=== PATIENT | female | born 1940 | race Caucasian/White ===

== ENCOUNTER 2016-12-15 09:18 | Emergency (ER) | payer OTHER ==
[2016-12-15 09:40] VITALS: RESP 16; TEMP 97.9
--- NOTE | 2016-12-15 09:45 | EDPHY ---
H & P Stated Complaint: "mass in stomach" Time Seen by Provider: 12/15/16 09:37 HPI/ROS: CHIEF COMPLAINT: "I've got a mass in my abdomen" HISTORY OF PRESENT ILLNESS: The patient is a 76 y/o female arriving with her complaining of a right-sided abdominal mass. She began feeling like she was "stuffed in her abdomen" around June, 5 months ago. She attributed this to weight gain and initially had no pain or mass. She has noticed a mass in her RLQ on palpation that does not change with bowel movements or other daily activities. She has associated "low-grade gnawing pain I feel most of the time" in the same area. She denies diarrhea, constipation, change in BM's, vomiting, dysuria, fever. She has not seen a PCP recently since hers retired. REVIEW OF SYSTEMS: Constitutional: No fever, no chills Eyes: No visual changes ENT: No sore throat Respiratory: No cough, no shortness of breath Cardiac: No chest pain Gastrointestinal: see HPI Genitourinary: No hematuria, no dysuria Musculoskeletal: No leg pain or swelling Skin: No rash Neurological: No headache, no numbness, no weakness Psychiatric: No depression - Personal History Current Tetanus Diphtheria and Acellular Pertussis (TDAP): Unsure - Medical/Surgical History PMH: Denies Hx Asthma: No Hx Chronic Respiratory Disease: No Hx Diabetes: No Hx Cardiac Disease: No Hx Renal Disease: No Hx Cirrhosis: No Hx Alcoholism: No Hx HIV/AIDS: No Hx Splenectomy or Spleen Trauma: No - Social History Smoking Status: Unknown if ever smoked Additional Social History: at bedside. PCP: [facility] - Physical Exam Exam: General Appearance: Alert, no distress, hypertensive at 194/93 Eyes: Pupils equal and round, no conjunctival pallor or injection ENT, Mouth: Mucous membranes moist Neck: Normal inspection Respiratory: Lungs are clear to auscultation Cardiovascular: Regular rate and rhythm Gastrointestinal: Abdomen is soft and non- tender, no palpable mass Neurological: A&O, nonfocal, normal gait Skin: Warm and dry, no rash Extremities: Nontender, no pedal edema Psychiatric: Mood and affect normal Constitutional: Initial Vital Signs Temperature (C) 36.6 C 12/15/16 09:34 Heart Rate 76 12/15/16 09:34 Respiratory Rate 16 12/15/16 09:34 Blood Pressure 194/93 H 12/15/16 09:34 O2 Sat (%) 96 12/15/16 09:34 O2 Delivery Mode Room Air Medical Decision Making - Diagnostics Imaging Results: CT abd/pelvis: NAD Imaging: Discussed imaging studies w/ dress draper Radiologist, I viewed and interpreted images myself ED Course/Re-evaluation: This is a 76 y/o female with no reported medical history who presents for evaluation of a reported mass in her RLQ with associated pain for the last few months. No changes in bowel habits. I find no evidence of a mass on exam. Plan for UA, IV, labs including CBC, CHEM, lipase, LFTs, and abdominal CT. Reassessed patient. Her labs and abdominal CT are unremarkable. Her abdomen remains benign. I recommended outpatient follow up with her PCP in the next week for ongoing symptoms. Return precautions given. She is comfortable with this plan. Differential Diagnosis: includes though not limited to tumor, cholecystitis, colitis, appy, PUD, SBO - Data Points Laboratory Results: Laboratory Results 12/15/16 09:35 12/15/16 09:35 Departure - Departure Disposition: Home, Routine, Self-Care Clinical Impression: Abdominal pain Qualifiers: Abdominal location: right upper quadrant Qualified Code(s): R10.11 - Right upper quadrant pain Condition: Good Instructions: Abdominal Pain (ED) Additional Instructions: 1. Your abdominal CT shows no evidence of a mass. 2. Follow up with a primary care provider for unimproved symptoms over the next few days. You've been referred to Dr. Noguera. 3. Return to the ED for worsening of condition. 4. Have your blood pressure rechecked. It is elevated today. Referrals: NONE *PRIMARY CARE P,. [Primary Care Provider] - As per Instructions Liliya Noguera MD [Medical Doctor] - As per Instructions Report Scribed for: Kaya Cisneros Report Scribed by: Naomi Mccrary Date of Report: 12/15/16 Time of Report: 09:46 Physician Review and Approval Statement: 12/15/16 09:46 Portions of this note were transcribed by a associate medical director. I personally performed a history, physical exam, medical decision making, and confirmed accuracy of information the transcribed note.
[2016-12-15 09:53] LABS: % IMMATURE GRANULYOCYTES 0.4 % (0.0-1.1); ABSOLUTE IMMATURE GRANULOCYTES 0.03 10^3/uL (0.00-0.10); ADD DIFF? NO; ADD MORPH? NO; ADD SCAN? NO; ATYPICAL LYMPHOCYTE FLAG 20 (0-99); FRAGMENT RBC FLAG 0 (0-99); HEMOGLOBIN 15.5 g/dL (12.6-16.3); LEFT SHIFT FLG 0 (0-99); LIPEMIA HEMOLYSIS FLAG 90 (0-99); MEAN CELL HEMOGLOBIN 32.4 pg (27.9-34.1); MEAN CELL HEMOGLOBIN CONCENTR. 34.4 g/dL (32.4-36.7); MEAN CELL VOLUME 93.9 fL (81.5-99.8); MEAN PLATELET VOLUME 10.9 fL (8.7-11.7); PLATELET CLUMPS FLAG 0 (0-99); PLATELET COUNT 272 10^3/uL (150-400); RED BLOOD CELL COUNT 4.79 10^6/uL (4.18-5.33); RED CELL DISTRIBUTION WIDTH 12.8 % (11.5-15.2)
[2016-12-15 10:15] LABS: ALANINE AMINOTRANSFERASE 34 IU/L (9-52); ALBUMIN 4.2 g/dL (3.5-5.0); ALKALINE PHOSPHATASE 71 IU/L (38-126); ANION GAP 12 mEq/L (8-16); ASPARTATE AMINOTRANSFERASE 28 IU/L (14-46); BILIRUBIN-CONJUGATED 0.1 mg/dL (0.0-0.5); BILIRUBIN-UNCONJUGATED 0.9 mg/dL (0.0-1.1); CALCIUM 9.8 mg/dL (8.5-10.4); CARBON DIOXIDE 22 mEq/l (22-31); CHLORIDE 109 mEq/L (97-110); GLOMERULAR FILTRATION RATE 54; GLUCOSE 93 mg/dL (70-100); POTASSIUM 4.3 mEq/L (3.5-5.2); SODIUM 143 mEq/L (134-144); TOTAL PROTEIN 7.5 g/dL (6.3-8.2)
[2016-12-15] MEDS ORDERED: IOPAMIDOL (ISOVUE-300) 100 ML BTL ONE (10:36)
[2016-12-15 12:02] VITALS: BP 153/83; PULSE 56; O2SAT 92
== END 2016-12-15 12:00 | disposition home or self-care (01) ==
DX: R10.11 Right upper quadrant pain (principal)
CPT/HCPCS: 74177; 99285; Q9967

== ENCOUNTER → 2017-08-20 | Outpatient (CLI) | payer OTHER | LOC: FIMAGING 09:20 | PROVIDERS: ATTEND Family Medicine | DX: R00.2 Palpitations (principal); R06.02 Shortness of breath ==

== ENCOUNTER → 2017-09-14 | Outpatient (CLI) | payer OTHER | LOC: BHFA 10:00 | PROVIDERS: ATTEND Internal Medicine Interventional Cardiology | DX: R00.2 Palpitations (principal) ==

== ENCOUNTER → 2017-09-17 | Outpatient (CLI) | payer OTHER | LOC: BHFA 08:30 | PROVIDERS: ATTEND Internal Medicine Cardiovascular Disease | DX: R07.9 Chest pain, unspecified (principal); R06.09 Other forms of dyspnea | CPT/HCPCS: 78452; 93017; A9500 ==

== ENCOUNTER 2018-04-03 09:20 | Emergency (ER) | payer OTHER ==
--- NOTE | 2018-04-03 09:36 | CPEKG ---
Test Reason : OPEN Blood Pressure : / mmHG Vent. Rate : 142 BPM Atrial Rate : 138 BPM P-R Int : 082 ms QRS Dur : 082 ms QT Int : 307 ms P-R-T Axes : 000 056 106 degrees QTc Int : 472 ms Atrial fibrillation Probable LVH with secondary repol abnrm ST depression, probably rate related Confirmed by Duke Garcia ([id number]) on 04/03/2018 9:35:52 AM Referred By: Confirmed By:Duke Garcia
[2018-04-03] MEDS ORDERED: DILTIAZEM 25 MG/5 ML VIAL IVP ONE (09:38)
[2018-04-03] MEDS ORDERED: NS 1,000 ML IV ONE (09:40)
--- NOTE | 2018-04-03 09:41 | EDPHY ---
General Time Seen by Provider: 04/03/18 09:40 Narrative: CHIEF COMPLAINT: Irregular heart rate HISTORY OF PRESENT ILLNESS: Patient presents by private vehicle with her spouse with complaints of irregular heart rate. She states that she was getting up onto a ladder as they are planning to paint, when she felt an irregular heart rate. She says that " it feels might my heart is just flopping around." Some pressure with but no actual pain. No exertional pain. The symptoms are constant over the past 2 hr. No exacerbating or alleviating factors. She does feel somewhat lightheaded. She has no loss of consciousness. No trauma. She has had similar symptoms over the past few months to a year without a formal diagnosis. She has seen shot polisher Dr. To, and she reports at Holter monitor and echocardiogram earlier this year with no definite diagnosis. No previous diagnosis of coronary artery disease, atrial fibrillation, PE, DVT or atrial flutter. No anticoagulation use. No other associated complaints or modifying factors. REVIEW OF SYSTEMS: 10 systems were reviewed and negative with the exception of the elements mentioned in the history of present illness. PCP: Dr. Junito Lawson SPECIALISTS: Cardiology, Dr. Sushant To PAST MEDICAL HISTORY: Cataracts PAST SURGICAL HISTORY: Cataract surgery SOCIAL HISTORY: Never smoker. Lives independently with her spouse in [place]. 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 FAMILY HISTORY: Noncontributory EXAMINATION: Vitals: Triage VS reviewed. Tachycardic rate. Afebrile. No SIRS General Appearance: Alert, no distress. Well appearing. Conversing in full sentences. Head: normocephalic, atraumatic Eyes: Pupils equal and round, no conjunctival pallor or injection ENT, Mouth: Mucous membranes moist Neck: Normal inspection, supple, non-tender Respiratory: Lungs are clear to auscultation Cardiovascular: Tachycardic rate. Irregular irregular rhythm. No murmur. Gastrointestinal: Abdomen is soft and nontender Back: non-tender, no bony abnormalities Neurological: A&O, nonfocal, normal gait. No altered mentation. Skin: Warm and dry, no rash Extremities: Nontender, no pedal edema Psychiatric: Mood and affect normal DIFFERENTIAL DIAGNOSES: Including but not limited to atrial fibrillation with RVR, atrial flutter, SVT, sinus tachycardia MDM: 9:35 a.m. Irregular rhythm with 1st time documentation of atrial fibrillation on her EKG. She is AFib RVR. She is awake and alert. Her pressure is 136/100. No altered mentation. No hypotension. No active chest pain. IV has been established. I have discussed with Dr. Garcia and he has ordered diltiazem IV 10 mg. We will also resuscitated with IV fluid and check her laboratory studies. Chest x-ray ordered. We will consult Cardiology. 10:20 a.m. Laboratory studies thus far are negative, including negative troponin. She does have some hemoconcentration and is receiving IV fluid. She has received 10 mg of Cardizem and her rate is now controlled. Proceed with cardiology consultation. 10:40 a.m. Case discussed with Cardiology, Fabricio GAS TRANSFER OPERATOR, and he will evaluate the patient in the emergency department shortly. He agrees with echocardiogram stat. No further recommendations at this time. 11:30 a.m. Echocardiogram complete but not yet interpreted. Cardiology at bedside. 12:30 p.m. Genetic Engineer has evaluated the patient. They have ordered p.o. Diltiazem. They would like her to take this and then ambulate approximately 30 min later. If tolerated, she may go home and follow up with them tomorrow morning for repeat EKG. They will start her on Eliquis twice daily here. If she is in AFib tomorrow morning, they will proceed with JUNIE and cardioversion. If not, the continue medications as discussed. The patient is comfortable this plan. 1:15 p.m. Patient has taking her medication and ambulated with minimal symptoms and no difficulty. She is comfortable with how she feels like to go home. Prescriptions for diltiazem and Eliquis were written by Fabricio with Cardiology. She has strict NPO after midnight instructions. She has an appointment tomorrow morning in their office for repeat EKG and plan as above. The patient is comfortable this plan. She is awake alert. She is conversing appropriately discharged home stable condition. SUPERVISION: Patient was independently examined, but I discussed the case with my secondary supervising physician Dr. Garcia CONSULTATION: Cardiology consultation in the emergency department - Diagnostics Imaging Results: Imaging Impressions Chest X-Ray 04/03/18 09:39 Impression: 1. No edema or acute process. 2. Chronic airways disease and minimal bibasilar atelectasis. - History Smoking Status: Never smoked - Objective Vital Signs: Initial Vital Signs Temperature (C) 97.5 F 04/03/18 09:22 Heart Rate 136 H 04/03/18 09:22 Respiratory Rate 18 04/03/18 09:22 Blood Pressure 159/117 H 04/03/18 09:22 O2 Sat (%) 98 04/03/18 09:22 O2 Delivery Mode Room Air Allergies/Adverse Reactions: No Known Allergies Allergy (Unverified 04/03/18 09:22) Home Medications: Medication Instructions Recorded Apixaban [Eliquis] 5 mg PO BID #60 tab 04/03/18 Diltiazem Cd [Cardizem ER Q24hr] 180 mg PO DAILY #30 cap 04/03/18 Ketorolac 0.5% 04/03/18 Pred-G 1% Eye Drops 04/03/18 Laboratory Results: Laboratory Results 04/03/18 09:35 04/03/18 09:35 04/03/18 04/03/18 04/03/18 09:39 09:35 09:35 WBC RBC Hgb Hct MCV MCH MCHC RDW Plt Count MPV Neut % (Auto) Lymph % (Auto) [place] % (Auto) Eos % (Auto) Baso % (Auto) Nucleat RBC Rel Count Absolute Neuts (auto) Absolute Lymphs (auto) Absolute Monos (auto) Absolute Eos (auto) Absolute Basos (auto) Absolute Nucleated RBC Immature Gran % Immature Gran # PT INR APTT Sodium 142 mEq/L mEq/L (135-145) Potassium 4.4 mEq/L mEq/L (3.3-5.0) Chloride 107 mEq/L mEq/L (97-110) Carbon Dioxide 23 mEq/l mEq/l (22-31) Anion Gap 12 mEq/L mEq/L (6-14) BUN 24 mg/dL H mg/dL (7-23) Creatinine 1.0 mg/dL mg/dL (0.6-1.0) Estimated GFR 54 Glucose 94 mg/dL mg/dL (70-100) Calcium 10.2 mg/dL mg/dL (8.5-10.4) POC Troponin I 0.00 ng/mL ng/mL (0.00-0.08) TSH 4.570 uIU/mL uIU/mL (0.465-4.680) 04/03/18 04/03/18 09:35 09:35 WBC 8.43 10^3/uL 10^3/uL (3.80-9.50) RBC 5.50 10^6/uL H 10^6/uL (4.18-5.33) Hgb 17.6 g/dL H g/dL (12.6-16.3) Hct 51.1 % H % (38.0-47.0) MCV 92.9 fL fL (81.5-99.8) MCH 32.0 pg pg (27.9-34.1) MCHC 34.4 g/dL g/dL (32.4-36.7) RDW 12.7 % % (11.5-15.2) Plt Count 279 10^3/uL 10^3/uL (150-400) MPV 10.8 fL fL (8.7-11.7) Neut % (Auto) 52.8 % % (39.3-74.2) Lymph % (Auto) 30.8 % % (15.0-45.0) Costilla % (Auto) 11.5 % % (4.5-13.0) Eos % (Auto) 3.8 % % (0.6-7.6) Baso % (Auto) 0.9 % % (0.3-1.7) Nucleat RBC Rel Count 0.0 % % (0.0-0.2) Absolute Neuts (auto) 4.44 10^3/uL 10^3/uL (1.70-6.50) Absolute Lymphs (auto) 2.60 10^3/uL 10^3/uL (1.00-3.00) Absolute Monos (auto) 0.97 10^3/uL H 10^3/uL (0.30-0.80) Absolute Eos (auto) 0.32 10^3/uL 10^3/uL (0.03-0.40) Absolute Basos (auto) 0.08 10^3/uL 10^3/uL (0.02-0.10) Absolute Nucleated RBC 0.00 10^3/uL 10^3/uL (0-0.01) Immature Gran % 0.2 % % (0.0-1.1) Immature Gran # 0.02 10^3/uL 10^3/uL (0.00-0.10) PT 12.3 SEC SEC (12.0-15.0) INR 0.89 (0.83-1.16) APTT 25.2 SEC SEC (23.0-38.0) Sodium Potassium Chloride Carbon Dioxide Anion Gap BUN Creatinine Estimated GFR Glucose Calcium POC Troponin I TSH Medications Given: Apixaban (Eliquis) 5 mg PO BID RAFAEL Stop: 09/30/18 12:14 Last Admin: 04/03/18 12:30 Dose: 5 mg Diltiazem HCl (Cardizem Er Q24hr) 180 mg PO DAILY RAFAEL Stop: 09/30/18 12:14 Last Admin: 04/03/18 12:30 Dose: 180 mg Discontinued Medications Diltiazem HCl (Cardizem 25 Mg/5 Ml Vial) 10 mg IVP EDNOW ONE Stop: 04/03/18 09:39 Last Admin: 04/03/18 09:48 Dose: 10 mg Sodium Chloride (Ns) 1,000 mls @ 0 mls/hr IV EDNOW ONE; Wide Open PRN Reason: Protocol Stop: 04/03/18 09:41 Last Admin: 04/03/18 09:47 Dose: 1,000 mls Point of Care Test Results: Chemistry 04/03/18 09:39 POC Troponin I 0.00 ng/mL ng/mL (0.00-0.08) Departure - Departure Disposition: Home, Routine, Self-Care Clinical Impression: Atrial fibrillation Qualifiers: Atrial fibrillation type: paroxysmal Qualified Code(s): I48.0 - Paroxysmal atrial fibrillation Condition: Good Instructions: A-fib (Atrial Fibrillation) (ED) Additional Instructions: Do not eating any solid food after midnight tonight. April 04 at 9:00 a.m., electrocardiogram to be done at [facility] If you remain in atrial fibrillation, then will go JUNIE/cardioversion tomorrow afternoon. Referrals: Sushant To MD [Primary Care Provider] - As per Instructions (April 04 at 9:00 a.m., electrocardiogram to be done at [facility]) Prescriptions: Apixaban [Eliquis] 5 mg PO BID #60 tab Diltiazem Cd [Cardizem ER Q24hr] 180 mg PO DAILY #30 cap
[2018-04-03 09:46] LABS: PLATELET COUNT 279 10^3/uL (150-400)
[2018-04-03 09:54] LABS: INR 0.89 (0.83-1.16); PROTIME(PATIENT) 12.3 SEC (12.0-15.0)
--- NOTE | 2018-04-03 12:08 | ECHO ---
[email or web address] [address] Main: [phone] Fax: Transthoracic Echocardiogram Name: VIDA PINEDA MR#: [id number] Study Date: 04/03/2018 Study Time: 10:56 AM Date of : 1940 Age: 78 year(s) Height: 162.6 cm (64 in.) Weight: 58.51 kg (129 lb.) BSA: 1.62 m2 Gender: Female Examination: Echo Indication: new onset a fib with rvr Image Quality: Contrast: Requested by: Cliff Baker BP: 160 mmHg/95 mmHg Heart Rate: Rhythm: Indication: new onset a fib with rvr Procedure Staff Grade Recorder: Monique Shoemaker [facility] Reading Physician: Roberto Hand MD Requesting Provider: Conclusions: Normal size left ventricle. Asymmetrical septal LV hypertrophy. Normal global systolic LV function. The ejection fraction is estimated to be 60-65 %. Normal size right ventricle. Normal RV function. The left atrium is normal in size. The right atrium is normal in size. Right ventricular systolic pressure measures 27mmHg. Normal size ascending aorta measuring 3.1 cm. No pericardial effusion. Measurements: Chambers Valvular Assessment AV/MV Valvular Assessment TV/PV Normal Normal Normal Name Value Range Name Value Range Name Value Range Ao Tana (2D): 2.6 cm (1.4 cm-2.6 AV Vmax: 1.20 m/s (1 m/s-1.7 TR Vmax: 2.32 mm/s ( - ) cm) m/s) TR PGmax: 22 mmHg ( - ) IVSd (2D): 1.9 cm (0.6 cm-1.1 AV maxP mmHg ( - ) syst. PAP: 27 mmHg ( - ) cm) AV meanP mmHg ( - ) PV Vmax: 0.94 m/s (0.6 m/s-0.9 LVDd (2D): 2.8 cm (3.9 cm-5.3 LVOT Vmax: 0.93 m/s (0.7 m/s-1.1 m/s) cm) m/s) PV PGmax: 4 mmHg ( - ) LVDs (2D): 2.0 cm (2.1 cm-4 ECHO (Vmax): 1.6 cm2 ( - ) cm) ECHO (VTI): 1.7 cm ( - ) LVPWd (2D): 1.3 cm ( - ) MV E Vmax: 0.64 m/s ( - ) LVOTd 1.6 cm 1.6 cm mm MV PHT: 0.026 s ( - ) LVEF (BP): 69 % (>=55 %) MVA (PHT): 8.5 s ( - ) EF Range: 60-65 % RVDd(2D): 2.4 cm (1.9 cm-3.8 cmmm) Patient: VIDA PINEDA Study Date: 04/03/2018 Page 1 of 2 10:56 AM Continued Measurements: Chambers Valvular Assessment AV/MV Valvular Assessment TV/PV Name Value Name Value Name Value LADs: 2.3 cm MV DecTime: 113 m/s CVP (est.): 5 mmHg LADs Lon.2 cm LA Area: 12.2 cm2 LA Volume: 25 ml LA Volume Index: 15.4 ml/m2 RA Area: 11.5 cm2 Additional Vessels Name Value Ao Ascendin.1 cm Inferior Vena Cava: 1.3 cm Findings: Left Ventricle: Normal size left ventricle. Asymmetrical septal LV hypertrophy. Normal global systolic LV function. The ejection fraction is estimated to be 60-65 %. No regional wall motion abnormality. Unable to assess diastolic function due to atrial fibrillation. Right Ventricle: Normal size right ventricle. Normal RV function. Left Atrium: The left atrium is normal in size. Right Atrium: The right atrium is normal in size. Mitral Valve: The mitral valve is normal in appearance and function. No mitral stenosis is present. Trivial mitral valve regurgitation. Aortic Valve: The aortic valve is tri-leaflet. There is no significant aortic valve regurgitation. No aortic valve stenosis is present. Tricuspid Valve: The tricuspid valve is normal in appearance and function. Mild tricuspid regurgitation is present. The pulmonary artery pressure is normal. Right ventricular systolic pressure measures 27mmHg. Pulmonic Valve: The pulmonic valve is normal in appearance and function. Trivial pulmonic valve regurgitation. Aorta: The aorta is normal. Normal size aortic root measuring 2.6 cm. Normal size ascending aorta measuring 3.1 cm. IVC: The IVC is normal sized. Pericardium: No pericardial effusion. No pleural effusion. (No Signature Object) Patient: VIDA PINEDA Study Date: 04/03/2018 Page 2 of 2 10:56 AM [id number]
[2018-04-03] MEDS ORDERED: APIXABAN 5 MG TAB PO SCH (12:15)
[2018-04-03] MEDS ORDERED: DILTIAZEM CD 180 MG CAP PO SCH (12:15)
[2018-04-03 13:30] VITALS: BP 115/84
--- NOTE | 2018-04-03 14:18 | GCON ---
CARDIOLOGY CONSULTATION REFERRING PHYSICIAN: Cliff Baker PA-C INDICATION FOR CARDIOLOGY CONSULTATION: Atrial fibrillation with rapid ventricular response. HISTORY OF PRESENT ILLNESS: The patient is a 78-year-old female. She has been seen in our practice by Dr. To as her primary automatic buffer. Last seen in September of this year. Patient reporting long hi story of palpitations, reporting happening sporadically during the year, but feels like in the last y ear she has had more significant episodes. She describes them as a racing heart rate, they usually c ome on spontaneously, they cause associated symptoms of lightheadedness, shortness of breath, and in the past occasional mild midsternal chest pressure. Earlier this year, when seen by Dr. To, she did undergo significant cardiac testing, including an echocardiogram which noted normal LV size with normal LV systolic function. EF was 66%, diastolic dysfunction, but no significant valvular heart di sease. She also underwent MPI study, which showed no signs of ischemia or infarction. Lastly in Aug, she underwent a Holter monitoring, which showed underlying rhythm was sinus rhythm, she was noted to have 2 runs of SVT, the longest at 7 beats per minute, and occasional PVCs, but no other malignan t arrhythmias. She was instructed that if she had any significant long episodes of palpitation she s hould present to the emergency department for further evaluation. Patient reports today, after eatin g breakfast, she was getting ready to go work outside, when suddenly she felt her heart rate start ra cing. This was associated with some lightheadedness and shortness of breath, also with fatigue sympt oms. This has been similar to what she has had in the past, and remembering what Dr. To had told her, she had her bring her to the emergency department. Upon arrival, electrocardiogram was done, which noted that she was in atrial fibrillation with rapid ventricular response, ventricular r ate was noted to up to 142 BPM, possible LVH was noted, but no significant ST or T-wave abnormalities . She was treated with a 10 mg bolus of IV diltiazem, which reduced the rate, but unfortunately, she remained in AFib. The patient informs me prior to today she has been noticing more frequent palpita tions in the last month. She does report having an episode approximately 1 week ago with similar sym ptoms, lasting approximately 1 hour. She states that besides the palpitations she has been in her [facility] state of health. She has not changed her diet. She denies of any chest pain or pressure. Repor ts no shortness of breath, orthopnea, PND, edema, near-syncope, or syncopal events. Reports no sympt oms suggestive of TIA or CVA. She does inform me that she has never started on the diltiazem that wa s ordered by Dr. To back in September. PAST MEDICAL HISTORY: Cataracts, esophageal stricture, GERD, hyperlipidemia, borderline hypertension . PAST SURGICAL HISTORY: Includes ankle surgery, esophageal dilation. FAMILY HISTORY: The patient reports significant family history that includes Alzheimer's, aortic marty nosis, and family members who have required pacemakers. SOCIAL HISTORY: She is . 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 She reports no children. She reports she w as a previous smoker, quitting greater than 10 years. She does use caffeine every day, at least 1 cu p of coffee and 2 cups of tea. She occasionally has a cup of wine once or twice a week. She denies of any illicit drug use. ALLERGIES: No known drug allergies. HOME MEDICATIONS: Pred-G 1% eye drops and ketorolac 0.5%. REVIEW OF SYSTEMS: A 10-point review of systems done on this patient all negative except as mentione d above. PHYSICAL EXAMINATION: GENERAL APPEARANCE: Thin, well-groomed, female. She is alert and o riented to person, place, time, and situation. Appears to be under no acute distress. VITAL SIGNS: Current vital signs show blood pressure of 148/102; heart rate is 108, atrial fibrillation on the mo nitor; respirations 18; saturating 96% on room air; temperature of 37 degrees Celsius. HEENT: Head is normocephalic. Lips and tongue are pink and moist with no signs of cyanosis. Conjunctivae pink. NECK: Trachea is midline. +2 carotid pulses bilateral. No auscultated bruits. No jugular vein di stention. RESPIRATORY: Lungs are clear to auscultation. No rhonchi, rales, or wheezes. No accesso ry muscle use. No intercostal muscle retraction noted. CARDIAC: Regular rate, irregular rhythm. S 1, S2. No S3, S4, gallops, rubs, or murmurs noted. ABDOMEN: Soft, nontender. Bowel sounds x4 quad rants. No organomegaly. No palpable masses. SKIN: [place], warm, dry. No cyanosis. No clubbing. N o peripheral edema. VASCULAR: +2 carotids bilateral, +2 radials bilateral, +2 dorsal pedal and post erior tibial pulses bilateral. LABORATORY STUDIES: Laboratory studies drawn today show WBC of 8.43, hemoglobin 17.6, hematocrit 51. 1, platelet count 279. INR is 0.89. Sodium 142, potassium 4.4, chloride 107, CO2 23, BUN 24, creati nine 1.0, glucose 94, calcium 10.2. Troponin of 0.00. TSH 4.570. STUDIES: Electrocardiogram today as mentioned above. Chest x-ray showing no acute cardiopulmonary p rocess, question possible chronic airway disease with minimal bibasilar atelectasis. Echocardiogram done this morning showing normal LV size, asymmetric septal LVH, normal LV systolic function, EF of 6 0% to 65%, normal RV size, normal RV function, LA is normal in size, RA is normal in size. RVSP of 2 7 mmHg, no pericardial effusion. As previously mentioned, patient underwent ETT/MPI study on August 272017. The patient was able to go 9 minutes and 45 seconds on treadmill, 11.4 METS, with no EKG ch anges noted suggesting ischemia. MPI study showed no significant reversible deficit suggesting of is chemia, no significant fixed deficit diagnostic of infarction, no transient ischemic dilation, normal LV systolic function with EF estimated at 84%. ASSESSMENT AND PLAN: 1. Persistent atrial fibrillation: The patient reporting a long history of palpitations and has had a significant cardiac workup in August and September of this year. Unfortunately, no arrhythmias have been identified. The patient reports worsening episodes of palpitations lasting longer in last week or t wo, with a significant episode this morning, with reported episode of lightheadedness and shortness o f breath, found to be in atrial fibrillation with rapid ventricular response with rates up to 142 nivia ts per minute. Echocardiogram does note some mild septal left ventricular hypertrophy, but no other significant valvular or structural heart disease. She has had a recent stress testing which noted no ischemia. Her TSH is noted to be within normal limits. She has been fairly well rate controlled wi th 1 push of IV diltiazem, and she shows no signs of heart failure. At this time, I would like to pl jin her on oral Cardizem at 180 mg p.o. daily. Will give her 1st dose now. We will have her walk ar ound the emergency department in about 30-60 minutes after getting the dose. If she does not show an y significant heart rate increase, we will plan for her to be discharged home. I would like her to h ave nothing to eat after midnight, and plan for her to come into our office tomorrow at 9 a.m. for an electrocardiogram. If she maintains in atrial fibrillation at that time, then will plan for her and undergo elective transesophageal echocardiogram cardioversion later tomorrow afternoon. She does du[place] ve a significant CHADS-VASc score of 4. Risks and benefits of anticoagulation including discussion o f warfarin and new novel oral anticoagulant drugs were went over with the patient and her . Angel Luis you verbalize understanding and are agreement to be started on it. We will place her on Eliquis at 5 mg p.o. b.i.d. (weight is greater than 60 kg, she is less than 80 years old, and her creatinine is l ess than 1.5). In the skilled nursing after cardioversion, I will consider placing her on a 30-day monitor to evaluate her atrial fibrillation burden and potentially consideration of doing an overnight oxime try study to evaluate for nocturnal hypoxia. 2. Hypertension: Patient with noted with significant elevated blood pressure on arrival, has improv ed with IV diltiazem, and has been noted in the office in the past that she has had elevated blood pr essures with recommendation of her starting the diltiazem when last seen by Dr. To. Unfortunatel y, she has never done this. We will start oral diet diltiazem as mentioned above. I have asked that she start recording her blood pressure on a daily basis, keeping a log, and when she follows up in o ur office with Dr. To, her primary automatic buffer, to bring the log in for further evaluation. The plan was discussed with both the patient and her . They verbalize understanding and are i n agreement. The patient has been told that if any problems or concerns come up after discharge she is to notify our office or return to the hospital. As mentioned above, she has a scheduled electroca rdiogram tomorrow morning at our office at 9. I will also preemptively schedule her for a transesoph ageal echocardiogram cardioversion for tomorrow afternoon, which if not needed we will cancel. We wi ll plan for her to also be seen in the office within the next week by Dr. To or one of our [facility] ed practice providers. Thank you for this consultation. /[id number]/MODL
== END 2018-04-03 13:30 | disposition home or self-care (01) ==
DX: I48.0 Paroxysmal atrial fibrillation (principal); J98.11 Atelectasis; J98.4 Other disorders of lung; E86.9 Volume depletion, unspecified
CPT/HCPCS: 84484-PO; 96374

== ENCOUNTER 2018-09-30 10:22 | Observation (INO) | payer OTHER ==
[2018-09-30] MEDS ORDERED: NS 1,000 ML IV ONE (10:31)
[2018-09-30 11:36] LABS: PLATELET COUNT 253 10^3/uL (150-400)
[2018-09-30 11:49] LABS: INR 0.95 (0.83-1.16); PROTIME(PATIENT) 12.3 SEC (12.0-15.0)
--- NOTE | 2018-09-30 13:04 | PDGENHP ---
History & Physical Chief Complaint: afl Relevant Physical Exam: s1s2 rrr cta ao3 Cardiorespiratory Assessment: afl for ablation. check for any inducible svt post AFL ablation
[2018-09-30] MEDS ORDERED: BUPIVACAINE 0.5% 30 ML SDV ONE (13:25)
[2018-09-30] MEDS ORDERED: HEPARIN 10,000 UNIT/10 ML MDV (1,000 UNIT/ML) ONE (13:25)
[2018-09-30] MEDS ORDERED: LIDOCAINE 1% 300 MG/30 ML SDV ONE (13:25)
[2018-09-30] MEDS ORDERED: ISOPROTERENOL HCL/D5W 0.2 MG/50 ML BAG IV ONE (13:26)
[2018-09-30] MEDS ORDERED: MIDAZOLAM 2 MG/2 ML VIAL IVP ONE (13:31)
--- NOTE | 2018-09-30 13:32 | PDANEPAE ---
ANE Past Medical History - Pulmonary History Hx Oxygen in Use at Home: No Hx Sleep Apnea: No - Endocrine History Hx Diabetes: No ANE Review of Systems Review of Systems: ANE Patient History - Allergies Allergies/Adverse Reactions: No Known Allergies Allergy (Unverified 04/03/18 09:22) - Home Medications Home Medications: Multivitamins [Multivitamin (*)] 1 each PO DAILY 09/23/18 [Last Taken 09/26/18] - Smoking Hx Smoking Status: Never smoked ANE Labs/Vital Signs - Labs Result Diagrams: 09/30/18 11:25 09/30/18 11:25 - Vital Signs Height: 165 cm Weight: 59 kg ANE Physical Exam - Airway Neck exam: FROM Mallampati Score: Class 1 Mouth exam: normal dental/mouth exam - Pulmonary Pulmonary: no respiratory distress - Cardiovascular Cardiovascular: regular rate and rhythym - ASA Status ASA Status: I ANE Anesthesia Plan Anesthesia Plan: general endotracheal anesthesia
[2018-09-30] MEDS ORDERED: fentaNYL 100 MCG/2 ML INJ ONE ×2 (13:39→15:34)
[2018-09-30] MEDS ORDERED: PROPOFOL/EMULSION 500 MG/50 ML BOTTLE IV ONE (13:39)
[2018-09-30] MEDS ORDERED: ONDANSETRON 4 MG/2 ML VIAL ONE (13:40)
[2018-09-30] MEDS ORDERED: DEXAMETHASONE 4 MG/ML VIAL ONE (13:40)
[2018-09-30] MEDS ORDERED: ROCURONIUM 50 MG/5 ML VIAL ONE (13:40)
[2018-09-30] MEDS ORDERED: ePHEDrine SULFATE 25 MG/5 ML SYR ONE (14:14)
[2018-09-30] MEDS ORDERED: GLYCOPYRROLATE 0.2 MG/1 ML VIAL ONE ×2 (15:39)
[2018-09-30] MEDS ORDERED: NEOSTIGMINE METHYLSULFATE 10 MG/10 ML MDV ONE (15:39)
--- NOTE | 2018-09-30 16:12 | POSTANESTH ---
Post Anesthetic Evaluation Cardiovascular Status: Similar to Pre-Op Cond Respiratory Status: Similar to Pre-op Cond. Level of Consciousness/Mental Status: Mildly Sleepy, Arousable Pain Control: Adequate, Prn Tx Ordered Nausea/Vomiting Control: Adequate, Prn Tx Ordered Complications Possibly Related to Anesthesia: None Noted
--- NOTE | 2018-09-30 16:34 | EPPROC ---
Electrophysiology Procedure Note: ELECTROPHYSIOLOGIC STUDY AND CATHETER MEDIATED ABLATION FOR SUBEUSTACHIAN ISTHMUS DEPENDENT COUNTERCLOCKWISE ATRIAL FLUTTER: INDICATION: Recurrent atrial flutter PROCEDURES PERFORMED: 74543-06 EP evaluation with RA/RV/LA pace/record, with arrhythmia induction 82168-76 EP evaluation with RA/RV pace record, insert/reposition catheter, with arrhythmia induction 51932 SVT ablation 89463 3D mapping Fluoroscopy CONFIRM monitor implant Catheters & Anesthesia: The patient arrived in the Electrophysiology Laboratory in the fasting state. The right clavicular region, right groin, and left groin area were prepped and draped in the usual sterile manner. Anesthesiologist Dr. Locke administered general anesthesia. Appropriate non-invasive blood pressure, pulse oximetry and end-tidal CO2 monitoring was established. All catheters were placed percutaneously using the modified Seldinger technique , and advanced into position under fluoroscopic guidance. One #7 Mauritian deflectable octapolar electrode catheter was advanced to the His-bundle position via the left femoral vein and then into the coronary sinus. One # 7 Mauritian Halo catheter was inserted through the left femoral vein and was placed at the tricuspid annulus. Heparin was administered to keep ACT > 200 seconds. Programmed stimulation was performed from the right atrium, coronary sinus ( left atrium) and right ventricle. On arrival to the Electrophysiology Laboratory the patient was in sinus rhythm. Programmed stimulation was performed from RA, LA (CS) and RV. There was no antegrade slow pathway conduction. Sustained atrial flutter has been seen previously. In preparation for ablation of typical atrial flutter, a high-resolution 3D (3 dimensional) Carto electroanatomical map of the sub-Eustachian isthmus and right atrium was obtained during pacing of the posterolateral coronary sinus. For ablation of typical atrial flutter, one Mobi sheath was placed in the right atrium. A #8 Mauritian deflectable quadrapolar electrode catheter (2mm-5mm-2mm spacing) with 3.5 mm STSF irrigated tip electrode and location sensor for the GonnaBe mapping system was inserted in the long sheath and advanced to the right atrium. Radiofrequency applications were applied between the tricuspid annulus at 0630 oclock as seen in the MIGUEL view and the inferior vena cava. This achieved conduction block across the isthmus. Post ablation, a high-resolution electroanatomical map of the sub-Eustachian isthmus was obtained during pacing of the posterolateral coronary sinus. This confirmed conduction block across the sub-Eustachian isthmus. Bidirectional block was also confirmed by pacing. Programmed stimulation on isoproterenol 2 mcg/min did not induce any sustained SVT CONFIRM ILR was implanted in 4th [facility] using standard technique, wound closed with beto. Device programmed to detect AFIB, HR<30 >150 bpm, pauses >3 s. The catheters were removed. Sheaths were removed in EP Lab post subQ purse string sutures. The patient was transferred to the cardiovascular holding area in stable condition. Vascular access sheaths were removed in the holding area. There were no apparent complications. CONCLUSIONS: 1. 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 2. Successful catheter mediated ablation of cavotricuspid isthmus achieving bi -directional conduction block across cavotricuspid isthmus. 3. SJM Confirm ILR implant. 4. No apparent complications. Patient Problems: Problems Problem Status Onset Atrial flutter Acute Abdominal pain Acute
[2018-10-01 04:57] LABS: PLATELET COUNT 224 10^3/uL (150-400)
--- NOTE | 2018-10-01 07:12 | CPEKG ---
Test Reason : OPEN Blood Pressure : / mmHG Vent. Rate : 057 BPM Atrial Rate : 058 BPM P-R Int : 132 ms QRS Dur : 086 ms QT Int : 448 ms P-R-T Axes : 063 051 072 degrees QTc Int : 437 ms Sinus rhythm Confirmed by Chidi Chapman ([id number]) on 10/01/2018 7:12:13 AM Referred By: Viktor Nugent Confirmed By:Chidi Chapman
--- NOTE | 2018-10-01 07:14 | CPEKG ---
Test Reason : OPEN Blood Pressure : / mmHG Vent. Rate : 063 BPM Atrial Rate : 130 BPM P-R Int : 163 ms QRS Dur : 082 ms QT Int : 448 ms P-R-T Axes : 053 055 063 degrees QTc Int : 459 ms Sinus rhythm APC Confirmed by Chidi Chapman ([id number]) on 10/01/2018 7:13:40 AM Referred By: Viktor Nugent Confirmed By:Chidi Chapman
[2018-10-01 07:47] VITALS: BP 114/60
--- NOTE | 2018-10-01 10:26 | ECHO ---
[email or web address] [address] Main: [phone] Echocardiography Examination Transthoracic Name: VIDA PINEDA MR#: [id number] Study Date: 10/01/2018 Study Time: 08:20 AM Date of : 1940 Age: 78 year(s) Height: 165.1 cm (65 in.) Weight: 58.97 kg (130 lb.) BSA: 1.65 m2 Gender: Female Examination: Echo Contrast: Image Quality: Fair Rhythm: Heart Rate: BP: 114 mmHg/60 mmHg Indication: F/U post EP study Procedure Staff Referring Physician: Cement Sprayer Helper: Monica Yoon [facility] Reading Physician: Rene Napoles MD Requesting Provider: Ordering Physician: Viktor Nugent MD Indication: F/U post EP study Measurements Chambers AV/MV Label Value Normal Value Label Value Normal Value LVDd, 2D 4.5 cm (3.9cm - 5.3cm) AV PGmean 3 mmHg LVDs, 2D 2.5 cm (2.1cm - 4cm) AV Vmax 1.23 m/s IVSd, 2D 0.5 cm (0.6cm - 1.1cm) MV E Vmax 0.79 m/s LVPWd, 2D 0.6 cm MV A Vmax 0.71 m/s LVEF, BP 76 % (55% - 70%) MV E/A 1.11 LVEF, 2D 77 % (54% - 74%) MV E/E' lateral 10.7 LADs, 2D 3 cm (2.7cm - 3.8cm) MV E/E' septal 13.5 (0.45 - 1.25) Additional Vessels MV E' septal 0.06 m/s Label Value Normal Value MV E' lateral 0.07 m/s AoRoot, MM 3.1 cm (2.2cm - 3.7cm) MV E/E' mean 12.15 MV E' mean 0.06 m/s Conclusions (1) Left ventricular systolic ejection fraction was normal (70%) - no LVH (2) Normal RV size and function (3) Normal atrial dimensions (4) Trivial MR (5) Trileaflet aortic valve without sclerosis or insufficiency Patient: VIDA PINEDA Study Date: 10/01/2018 Page 1 of 2 08:20 AM (6) Grossly normal tricuspid valve (7) Normal ascending aorta dimensions (8) Trivial pericardial effusion (no tamponade) Findings Left Ventricle: Left ventricle is normal in size. Normal global systolic left ventricular function. The ejection fraction, measured by Simpsons method, is 76 %. EF range is estimated at 70 % - 75 %. Left ventricle wall thickness is normal. There are no regional wall motion abnormalities. Left ventricular diastolic function parameters are normal. IVS: The septum is intact. Right Ventricle: Normal size right ventricle. Right ventricular systolic function is normal. Left Atrium: The left atrium is normal in size. IAS: Normal appearing atrial septum. Right Atrium: The right atrium is normal in size. Mitral Valve: Mitral valve appears structurally normal. Trivial mitral regurgitation. No mitral valve stenosis. Aortic Valve: Aortic leaflets exhibit normal cuspal separation. No aortic valve regurgitation. There is no aortic stenosis. The aortic valve is trileaflet. Tricuspid Valve: Tricuspid valve leaflets are normal in appearance and function. Trivial tricuspid regurgitation. No tricuspid valve stenosis. Pulmonary artery pressure normal. Pulmonic Valve: Pulmonic valve is poorly visualized. Pulmonic leaflets exhibit normal cuspal separation. There is no pulmonic valve stenosis. Aorta: The aorta is normal. The aortic root size in M-mode measures 3.1 cm. Aorta Measurements AoRoot, MM is 3.1 cm. Pulmonary Artery: The pulmonary artery morphology appears normal. IVC: The inferior vena cava is normal in size and course. Pericardium: Trivial anterior pericardial effusion with echogenicity within vs. fat pad.. No pleural effusion present. Exam Details Procedure Ordered: Echo Procedure Status: Routine study Image Quality: Fair Facility Location: Cardiac Echo 1 (No Signature Object) Patient: VIDA PINEDA Study Date: 10/01/2018 Page 2 of 2 08:20 AM [id number]
--- NOTE | 2018-10-01 10:30 | ASDISCHSUM ---
Discharge Information Plan Status:Home with No Needs Medically Cleared to Leave:10/01/2018 Discharge Date:10/01/2018 CM D/C Disposition:Home, Routine, Self-Care ADT D/C Disposition:Home, Routine, Self-Care Projected Discharge Date:10/01/2018 Transportation at D/C: Discharge Delay Reason: Follow-Up Date:10/01/2018 Discharge Slot: Final Diagnosis: Placement Information Patient Contact Information Contact Name:OLEG Relationship: Address:[address] Work Phone: City:[facility] Phone: State/Zip Code:[place] [address] Email: Financial Information Financial Class:Medicare Primary Plan Desc:MEDICARE OUTPATIENT Primary Plan Number:[id number] Secondary Plan Desc:[facility] Secondary Plan Number:[id number] Assessment Information LACE LACE Length of stay for Answers: Less than 1 day current admission Acuity / Level of Answers: No Care: Did the patient have an inpatient admission? # of Emergency department Answers: 1-2 visits in the last 6 months Score: 1 Date Signed: 10/01/2018 10:28 AM Electronically Signed By:Candie Ruby RN Intervention Information
--- NOTE | 2018-10-01 16:40 | CPEKG ---
Test Reason : OPEN Blood Pressure : / mmHG Vent. Rate : 054 BPM Atrial Rate : 054 BPM P-R Int : 172 ms QRS Dur : 086 ms QT Int : 461 ms P-R-T Axes : 070 051 063 degrees QTc Int : 437 ms Sinus rhythm Confirmed by Chidi Chapman ([id number]) on 10/01/2018 4:39:52 PM Referred By: Viktor Nugent Confirmed By:hCidi Chapman
== END 2018-10-01 11:19 | disposition home or self-care (01) ==
LOC: FCATH 10:22 → F2W 15:57
PROVIDERS: ADMIT Internal Medicine Cardiovascular Disease; ATTEND Internal Medicine Cardiovascular Disease
DX: I48.92 Unspecified atrial flutter (principal); I47.1 Supraventricular tachycardia
CPT/HCPCS: 33285; 93005; 93306; 93613; 93621; 93623; 93653; C1731; C1732; C1764; C1766; J1100; J1644; J2250; J2405; J2704; J3010